=== PATIENT | female | born 1980 | race Two or more races ===

== ENCOUNTER 2018-11-25 10:29 | Emergency (ER) | payer MEDICAID ==
[~2018-11-25] VITALS: Ht 160 cm; Wt 59.0 kg
[2018-11-25] MEDS ORDERED: LORAZEPAM 0.5MG TABLET PO ONE (10:45)
[2018-11-25 12:11] VITALS: BP 120/75
== END 2018-11-25 12:13 | disposition home or self-care (01) ==
LOC: ER 10:43
DX: F41.0 Panic disorder [episodic paroxysmal anxiety] (principal); F12.10 Cannabis abuse, uncomplicated; Z88.0 Allergy status to penicillin
CPT/HCPCS: 71045; 93005; 99284; Z7610